=== PATIENT | male | born 1945 | race Caucasian/White ===

== ENCOUNTER 2018-12-01 15:58 | Inpatient (IN) | payer MEDICARE ==
[~2018-12-01] VITALS: Ht 198.1 cm; Wt 119.5 kg
[2018-12-01 16:08] VITALS: BP 129/64
[2018-12-01] MEDS ORDERED: LIPITOR10 MG PO (16:28)
[2018-12-01] MEDS ORDERED: CELEXA10 MG PO (16:28)
[2018-12-01] MEDS ORDERED: BAYER CHEWABLE81 MG PO (16:28)
[2018-12-01] MEDS ORDERED: COREG6.25 MG PO (16:29)
[2018-12-01] MEDS ORDERED: CARBIDOPA-LEVO1 EA16 PO (16:30)
[2018-12-01] MEDS ORDERED: TOPIRAMATE25 MG PO (16:30)
[2018-12-01] MEDS ORDERED: GLYBURIDE-METF1 EACH PO (16:31)
[2018-12-01 16:33] LABS: ABSOLUTE BASOPHILS 0.1 thou/uL (0.0-0.2); ABSOLUTE EOSINOPHILS 0.2 thou/uL (0.0-0.7); ABSOLUTE LYMPHOCYTES 1.4 thou/uL (0.8-5.3); ABSOLUTE MONOCYTES 0.7 thou/uL (0.0-1.2); ABSOLUTE NEUTROPHILS 7.5 thou/uL (1.6-8.1); BASOPHILS 1.2 %; EOSINOPHILS 2.1 %; HEMATOCRIT 43.8 % (42.0-52.0); LYMPHOCYTES 14.4 %; MCHC 34.3 g/dL (28.0-37.0); MONOCYTES 6.9 %; MPV 9.1 fl. (7.2-11.1); NUCLEATED RBCS 0 /100WBC; PLATELET COUNT* 275 thou/uL (150-400); POLYS 75.4 %; RDW-CV 13.3 % (10.5-14.5)
[2018-12-01 16:42] LABS: ANION GAP 7 mmol/L (7-16); BUN 20 mg/dL (7-18); CALCIUM 9.4 mg/dL (8.5-10.1); CHLORIDE 104 mmol/L (98-107); CO2 28 mmol/L (21-32); CREATININE 1.3 mg/dL (0.6-1.3); GLUCOSE 245 mg/dL (70-99); POTASSIUM 4.5 mmol/L (3.5-5.1); SODIUM 139 mmol/L (136-145)
[2018-12-01 16:53] LABS: TROPONIN-I LEVEL <0.06 ng/mL (<0.06)
[2018-12-01 20:43] VITALS: BP 135/84
[2018-12-01 21:07] VITALS: BP 144/86
[2018-12-02 04:42] LABS: HEMATOCRIT 42.4 % (42.0-52.0); HEMOGLOBIN 14.5 gm/dL (14.0-18.0); MCH 34.8 pg (26.0-34.0); MCHC 34.1 g/dL (28.0-37.0); MCV 102.1 fL (80.0-100.0); MPV 9.1 fl. (7.2-11.1); RBC 4.15 mil/uL (4.50-6.00); RDW-CV 13.1 % (10.5-14.5); WBC 10.1 thou/uL (4.0-11.0)
[2018-12-02 04:55] LABS: CALCIUM 9.2 mg/dL (8.5-10.1); POTASSIUM 3.7 mmol/L (3.5-5.1)
[2018-12-02 04:58] LABS: URINE BLOOD NEGATIVE (Negative); URINE CLARITY CLEAR; URINE COLOR DARK YELLOW; URINE GLUCOSE-RANDOM 1+ (Negative); URINE KETONES NEGATIVE (Negative); URINE LEUKOCYTES-REFLEX NEGATIVE (Negative); URINE NITRITE-REFLEX NEGATIVE (Negative); URINE PROTEIN NEGATIVE (Negative); URINE SPECIFIC GRAVITY 1.025 (1.005-1.030); URINE UROBILINOGEN 0.2 E.U./dl (0.2-1.0)
[2018-12-02 05:09] LABS: ICTOTEST (BILI CONFIRMATORY) Negative (Negative); URINE BILIRUBIN 1+ (Negative)
--- NOTE | 2018-12-02 09:47 | EKG ---
[place] [address] ELECTROCARDIOGRAM REPORT Name: NOY GIBBONS Room: [address] ADM IN .R.#: [id number] Admission: 12/01/18 Attend Phys: Mali Lunsford MD Discharge: Date of : 41 Report #: [id number] THIS REPORT FOR: //name// [facility] ED Test Date: 2018-12-01 Test Time: 17:24:55 Pat Name: NOY GIBBONS Department: Room: [facility] Gender: M Herbologist: EV : 1945 Requested By: Randy Bateman Order Number: [id number] MD: Conrad Nettles Measurements Intervals [place] Rate: 81 P: 55 OK: 160 QRS: -29 QRSD: 103 T: 40 QT: 375 QTc: 436 Interpretive Statements Sinus rhythm Borderline left axis deviation Borderline low voltage, extremity leads Compared to ECG 04/07/2007 07:38:36 No significant changes Electronically Signed On 12-02-2018 9:47:38 CDT by Conrad Nettles [email or web address] <ELECTRONICALLY SIGNED> By: Conrad Nettles MD, [facility] 12/02/18 0947 1724 1724 Conrad Nettles MD, [facility] /EPI
[2018-12-02 16:00] VITALS: BP 130/80
[2018-12-02 20:15] VITALS: BP 134/91
[2018-12-03 08:37] VITALS: BP 124/86
[2018-12-03 10:22] LABS: APTT 27.3 Seconds (25.0-31.3); INR 1.1; PROTIME 11.2 Seconds (9.20-11.50)
[2018-12-03 14:32] VITALS: BP 124/86
[2018-12-03 14:33] VITALS: BP 124/86
[2018-12-03 17:02] VITALS: BP 157/87
[2018-12-03 20:25] VITALS: BP 138/87
[2018-12-04 16:31] VITALS: BP 106/77
[2018-12-04 20:01] VITALS: BP 108/59
[2018-12-05 08:30] VITALS: BP 111/62
[2018-12-05 15:42] VITALS: BP 106/63
[2018-12-05 21:15] VITALS: BP 112/58
[2018-12-06 08:30] VITALS: BP 103/56
[2018-12-06 17:11] VITALS: BP 127/64
[2018-12-06 21:30] VITALS: BP 108/53
[2018-12-07 07:40] VITALS: BP 119/65
[2018-12-07] MEDS ORDERED: ACETAMINOPHEN325 MG PO (10:09)
[2018-12-07] MEDS ORDERED: HUMALOG100 UNIT/1 SUBQ (14:18)
[2018-12-07] MEDS ORDERED: NICOTINE TRANSD21 M1 TRANSDERM (14:19)
[2018-12-07 16:00] VITALS: BP 112/63
[2018-12-07 21:10] VITALS: BP 107/58
[2018-12-08 08:00] VITALS: BP 106/68
[2018-12-08 18:45] VITALS: BP 106/68
== END 2018-12-08 19:15 | DRG 516 ==
LOC: M.ERS 15:58 → M.ORTHSURG 18:11 → M.TBA-ER 18:11 → M.ORTHSURG 20:50
PROVIDERS: Nurse Practitioner Psychiatric/Mental Health; ADMIT Internal Medicine
PROC: 0QU03JZ Supplement Lumbar Vertebra with Synthetic Substitute, Percutaneous Approach (ICD-10-PCS; principal; 2018-12-03)
PROC: 0QS03ZZ Reposition Lumbar Vertebra, Percutaneous Approach (ICD-10-PCS; principal; 2018-12-03)
DX: S32.029A Unspecified fracture of second lumbar vertebra, initial encounter for closed fracture (principal); J98.11 Atelectasis; S32.049A Unspecified fracture of fourth lumbar vertebra, initial encounter for closed fracture; G20 Parkinson's disease; M19.90 Unspecified osteoarthritis, unspecified site; F41.9 Anxiety disorder, unspecified; Z95.5 Presence of coronary angioplasty implant and graft; E11.65 Type 2 diabetes mellitus with hyperglycemia; F17.210 Nicotine dependence, cigarettes, uncomplicated; N28.1 Cyst of kidney, acquired; H10.9 Unspecified conjunctivitis; Z60.2 Problems related to living alone; E78.5 Hyperlipidemia, unspecified; I10 Essential (primary) hypertension; W18.39XA Other fall on same level, initial encounter; Y93.89 Activity, other specified; Y92.89 Other specified places as the place of occurrence of the external cause; Y99.8 Other external cause status

== ENCOUNTER 2018-12-08 16:03 | Inpatient (IN) | payer MEDICARE ==
[~2018-12-08] VITALS: Ht 198.1 cm; Wt 122.3 kg
[~2018-12-08 16:03] MED LIST: ACETAMINOPHEN325 MG PO; BAYER CHEWABLE81 MG PO; CARBIDOPA-LEVO1 EA16 PO; CELEXA10 MG PO; COREG6.25 MG PO; GLYBURIDE-METF1 EACH PO; HUMALOG100 UNIT/1 SUBQ; LIPITOR10 MG PO; NICOTINE TRANSD21 M1 TRANSDERM; TOPIRAMATE25 MG PO
[2018-12-08 20:00] VITALS: BP 136/82
[2018-12-09 04:09] LABS: HEMATOCRIT 40.3 % (42.0-52.0); HEMOGLOBIN 13.7 gm/dL (14.0-18.0); MCH 34.5 pg (26.0-34.0); MCHC 34.1 g/dL (28.0-37.0); MCV 101.1 fL (80.0-100.0); MPV 8.9 fl. (7.2-11.1); RBC 3.99 mil/uL (4.50-6.00); WBC 7.8 thou/uL (4.0-11.0)
[2018-12-09 04:20] LABS: CALCIUM 9.3 mg/dL (8.5-10.1); POTASSIUM 3.7 mmol/L (3.5-5.1)
--- NOTE | 2018-12-09 06:42 | NUR ---
PT ARRIVED ONTO UNIT AT 191 VIA W/C. ALERT AND ORIENTED. PLEASANT. HX OF PARKINSONS. HAS TREMORS. S/P KYPHOPLASTY. C/O PAIN TO LEFT LOWER BACK/HIP. THERE IS PALPABLE SMALL LUMP TO AREA THAT IS VERY TENDER/ PAINFUL TO TOUCH. PT LAYS ONTO RIGHT SIDE DUE TO PAIN. TYLENOL GIVEN. DENIED PAIN TO SPINE OR OTHER AREAS. MIN ASSIST WITH GAIT BELT AND WALKER. DOES HAVE URINARY STRESS INCONTINENCE. WEARS PULLUPS. USED URINAL WITH ASSIST BUT DID HAVE URINARY ACCIDENT WELL. VOIDING GOOD AMOUNTS. UA SENT. SLEPT MOST OF THE NIGHT. CALL LIGHT IN REACH AND BED ALARM ON. ADMISSION ASSESSMENT COMPLETED.
[2018-12-09 07:42] VITALS: BP 118/70
[2018-12-09 08:58] LABS: URINE BILIRUBIN NEGATIVE (Negative); URINE BLOOD NEGATIVE (Negative); URINE CLARITY CLEAR; URINE COLOR YELLOW; URINE GLUCOSE-RANDOM NEGATIVE (Negative); URINE KETONES NEGATIVE (Negative); URINE LEUKOCYTES-REFLEX NEGATIVE (Negative); URINE NITRITE-REFLEX NEGATIVE (Negative); URINE PROTEIN NEGATIVE (Negative); URINE SPECIFIC GRAVITY 1.015 (1.005-1.030); URINE UROBILINOGEN 0.2 E.U./dl (0.2-1.0)
--- NOTE | 2018-12-09 13:39 | NUR ---
Nutrition: Pt admitted to rehab. H/o Parkinsons, OA, CAD, DMII. Wt: 265#. CHO controlled diet. BG 147, no albumin recorded. Per RN, no nutrition concerns at this time. RD will follow weekly. Low risk.
--- NOTE | 2018-12-09 14:15 | NUR ---
SW met with pt to complete initial assessment, introduce self, and SW role on inpt rehab. SW familiar with pt from acute stay. Pt alert, oriented. Pt lives at home alone and pt step john Sanchez is supportive. Pt independent prior and pt goal is to be able to return home alone with his dog. Pt has SOBIA anderson. Pt wondered how quickly he might be able to dc home and SW explained team conference on Thursday, how close pt is to meeting pt goals, etc and then discussion with team, doctor, pt to determine when pt may be ready to dc home. SW to continue to follow to assist with safe dc planning.
--- NOTE | 2018-12-09 18:31 | NUR ---
PT HAS PARTICIPATED WITH THERAPIES AND CALLS FOR ASSIST NEEDS.PT AMBULATES WITH WALKER GAITBETL AND MIN ASSIST OF 1 BUT TIRES EASILY. PT REMAINS ALERT AND ORIENTATED. HERE THIS AFTERNOON AND IS REMINDED TO BEING IN HOME MEDICATIONS.
[2018-12-09 19:51] VITALS: BP 113/79
--- NOTE | 2018-12-10 00:58 | NUR ---
ASSUMED CARE AT 1930. PATIENT RESTING IN CHAIR UNTIL HS. UP WITH SBA, GAIT BELT, WALKER. TO BED. VOIDS PER URINAL. WEARS PULLUP FOR STRESS INCONTINENCE. TAKES PILLS WHOLE WITH WATER. DENIES PAIN. TURNS SELF. HOURLY ROUNDS CONTINUE. BED ALARM. CALL LITE IN REACH.
--- NOTE | 2018-12-10 05:14 | NUR ---
SLEPT MOST OF THE NIGHT ON HIS SIDE. TURNS SELF. VOIDS PER URINAL. NO C/O PAIN. HOURLY ROUNDS CONTINUE. BED ALARM ON. CALL LITE IN REACH.
[2018-12-10 08:00] VITALS: BP 129/97
[2018-12-10 09:00] VITALS: BP 129/87
--- NOTE | 2018-12-10 18:02 | NUR ---
PT A&O. DENIES PAIN. GETS UP WITH STAND BY ASSIST. OUT OF BED THE WHOLE DAY. TOLERATING DIET. INSULIN ADMINISTERED PER PROTOCOL. NO ANY SPECIFIC CONCERNS.
[2018-12-10 19:45] VITALS: BP 118/64
--- NOTE | 2018-12-10 21:40 | NUR ---
INITAL ASSESMENT COMPLETED AT 194. PT PLEASANT AND COOPERATIVE, DENIED PAIN OR DISCOMFORT AT THAT TIME. HS MEDS DISPENSED ORDERED PER EMAR. CALL LIGHT IN REACH, PT USING PROPERLY.
[2018-12-11 08:00] VITALS: BP 119/66
--- NOTE | 2018-12-11 14:49 | NUR ---
PATIENT UP IN [place] LUNCH IN DINING ROOM. TOLERATING ACTIVITIES WELL. PATIENT FAMILY BROUGHT IN HOME MEDS CORRECTED ON MAY.
[2018-12-11 19:55] VITALS: BP 111/67
--- NOTE | 2018-12-12 00:40 | NUR ---
ASSUMED CARE @ -SAT.AWAKE IN BED W/ HOB UP WATCHING TV.URINAL W/IN REACH.WANTS ONLY SIDERAILS X2 UP,LIGHTS IN BATHROOM ON & DOOR CLOSED @ NIGHT. TURNS SELF @ NIGHT.PRN AMBIEN 5 MG ORAL GIVEN @ -SUN PER PT'S REQUEST.INFORMED THAT CAN TAKE PRN AMBIEN EARLIER BEFORE 2200 NEXT TIME.ON HOURLY ROUNDS.CAMPAIGN ASSOCIATE DOING ODD HOUR ROUNDS.
--- NOTE | 2018-12-12 05:27 | NUR ---
SLEEPING SINCE 2049.AWAKE @ 0200 & 0400-12/1211-[id number] AFTER TAKING PRN AMBIEN.HAS TREMORS MILD-HEAD & HANDS.USED URINAL X2.REFUSED HS SNACK.
[2018-12-12 08:14] VITALS: BP 111/77
--- NOTE | 2018-12-12 16:21 | NUR ---
PATIENT UP IN CHAIR THIS SHIFT, WAFFLE CUSHION IN PLACE AND PATIENT REPOSITIONS SELF IN CHAIR. UP WITH GAIT BELT AND WALKER. NO COMPLAINTS OF PAIN. PATIENT DRESSED HIMSELF WITH SUPERVISION.
[2018-12-12 16:54] VITALS: BP 113/72
[2018-12-12 19:00] VITALS: BP 114/59
--- NOTE | 2018-12-13 01:12 | NUR ---
ASSUMED CARE @ 1937-12/12-THURSDAY.SITS IN RECLINER WATCHING BALL GAME.CHAIR ALARM ALREADY ON @ 1937.PRN AMBIEN 5 MG ORAL GIVEN @ 2030.SBA FOR TRANSFERS & TOILETING.HOB UP IN BED.WANTS ONLY SIDERAILS X2 UP,LIGHT IN BATHROOM ON ALL NIGHT & DOOR CLOSED @ NIGHT.BED ALARM PUT ON @ 2044.CONCERN OF HARD NODULE W/C IS TENDER ON LOWER BACK LEFT SIDE AFTER KYPHOLASTY.DR ALVAREZ CAME @ 2099 & ORDER GIVEN FOR LIDODERM PATCH TO AFFECTED SITE TO START THIS EVENING.APPLIED @ 2199.ON HOURLY ROUNDS.DIRECTOR COUNSELING BUREAU DOING ODD HOUR ROUNDS.TURNS SELF @ NIGHT.
--- NOTE | 2018-12-13 05:12 | NUR ---
SLEEPING SINCE 2200 & SLEPT CONTINOUSLY DURING NIGHT.REFUSED HS SNACK.BRP X1. DID NOT USE URINAL DURING NIGHT.
[2018-12-13 08:22] VITALS: BP 105/64
[2018-12-13 16:02] VITALS: BP 112/78
--- NOTE | 2018-12-13 16:02 | NUR ---
PATIENT WORKING WITH THERAPYS TODAY. UP TO CHAIR WHEN IN ROOM. PATIENT GIVEN MOM, NO BM SINCE THURSDAY; NO RESULTS AT THIS TIME. NO COMPLAINTS OF PAIN. PATIENT SHOWERED TODAY WITH OT.
[2018-12-13 20:27] VITALS: BP 115/62
--- NOTE | 2018-12-13 23:18 | NUR ---
ASSUMED CARE AT 1930. PATIENT RESTING IN RECLINER UNTIL AFTER "DANCING WITH THE STARS." TAKES PILLS WHOLE WITH WATER. UP WITH SBA, GAIT BELT. REFUSED USING WALKER BECAUSE "THERAPIES TOLD ME I DIDN'T HAVE TO USE IT." VOIDED PER TOILET WHILE STANDING. LIDODERM PATCH PUT ON FIRM AREA TO LT BACK. NO C/O PAIN. TREMORS NOTED. REFUSED HS SNACK. HOURLY ROUNDS CONTINUE. BED ALARM ON. CALL LITE IN REACH.
--- NOTE | 2018-12-14 05:33 | NUR ---
APPEARED SLEEPING MUCH OF NIGHT. HEARD SNORING RESPS AT TIMES. TURNS SELF. NO C/O PAIN. VOIDED PER URINAL. HOURLY ROUNDS CONTINUE. BED ALARM ON. CALL LITE IN REACH.
[2018-12-14 08:23] VITALS: BP 119/79
[2018-12-14 19:30] VITALS: BP 120/69
--- NOTE | 2018-12-14 20:35 | NUR ---
SITTING UP ON SIDE OF BED. DENIES DISCOMFORT. ULTRA SOUND TO LOWER BACK COMPLETED. CALL LIGHT WITHIN REACH.
--- NOTE | 2018-12-15 05:27 | NUR ---
RESTED QUIETLY. USED URINAL X ONE. HOURLY ROUNDING IN PROGRESS.
[2018-12-15 07:55] VITALS: BP 104/68
--- NOTE | 2018-12-15 17:01 | NUR ---
JINA and Dr Andrade met with pt to review team conference summary and plan for pt to dc home tomorrow. Pt in agreement with plan. SW to continue to follow to assist with finalization of safe dc plan.
[2018-12-15 20:00] VITALS: BP 109/68
--- NOTE | 2018-12-15 23:01 | NUR ---
ASSUMED CARE AT 1930. FOUND PATIENT SLEEPING IN BED LYING ON LEFT SIDE IN BED WITHOUT BED ALARM ON AND STILL IN DAYTIME CLOTHES, POSSIBLY HAVING PUT HIMSELF TO BED. TAKES MEDS WHOLE WITH WATER. AFTER DISCUSSION, PATIENT DECIDED TO TAKE MOM BECAUSE HE HAS NOT HAD A BM. HE STATES THAT HE WILL BE "FINE" WHEN HE GETS HOME. ASSISTED WITH CHANGING INTO SLEEP SHIRT. VOIDS PER URINAL AT [facility]. REMINDED OF SAFETY/FALL PRECAUTIONS. BED ALARM ON. CALL LITE IN REACH. HOURLY ROUNDS CONTINUE.
--- NOTE | 2018-12-16 05:16 | NUR ---
OBSERVED SLEEPING ON ROUNDS. VOIDED PER URINAL. NO C/O PAIN. HOURLY ROUNDS CONTINUE. BED ALARM ON. CALL LITE IN REACH.
--- NOTE | 2018-12-16 06:55 | NUR ---
WHILE GIVING AM MEDS, PATIENT WONDERED ABOUT HIS BLOOD SUGAR. HE THOUGHT IT MIGHT BE LOW. FINGERSTICK BLOOD SUGAR PERFORMED, 68. GIVEN 4 OZ APPLE JUICE AND FOUR KARIN CRACKERS. INSTRUCTED PATIENT TO TAKE HS SNACK OFFERED.
[2018-12-16 08:00] VITALS: BP 106/61
[2018-12-16 14:38] VITALS: BP 109/68
[2018-12-16 15:09] VITALS: BP 109/68
--- NOTE | 2018-12-16 15:13 | NUR ---
Pt ready to dc today to home alone with HH services to follow and pt step dtr Laura is supportive and checks on pt on the weekends. JINA sent referral and orders to pt/family preference of [facility]. Pt has needed DME. Pt step dtr to provide pt ride home after pt step dtr is off of work. No other dc needs expressed.
--- NOTE | 2018-12-16 18:02 | NUR ---
AM ASSESSMENT AND VITAL SIGNS COMPLETED DOCUMENTED. PT COMPLETED ALL THERAPY SESSIONS BUT STILL HADN'T HAD A BM. NEW ORDERS REC'D FOR A DULCOLAX SUPPOSITORY AND A KUB. PT EVENTUALLY HAD TWO HUGE BOWEL MOVEMENTS, INCONTINENT OF BOTH AND REQUIRED A SHOWER AND CLOTHING CHANGE EACH TIME. PT'S DAUGHTER STATED THE FLOORS AT HIS HOME WERE NOT COMPLETELY DRY FROM THE WORK THEY HAD DONE WHILE HE WAS HERE AND SHE CAN'T PICK HIM UP UNTIL THE AM.
[2018-12-16 20:27] VITALS: BP 107/71
--- NOTE | 2018-12-17 05:54 | NUR ---
ASSUMED CARES AT 1920. ALERT AND ORIENTED. PLEASANT. C/O PAIN TO LEFT LOWER LATERAL SIDE. WANTED LIDODERM PATCH APPLIED THERE. REFUSED BEDTIME SNACK. SLEPT MOST OF THE NIGHT. CALL LIGHT IN REACH AND BED ALARM ON.
[2018-12-17 08:19] VITALS: BP 126/78
[2018-12-17] MEDS ORDERED: SYNTHROID100 MC1 PO (10:51)
[2018-12-17] MEDS ORDERED: LIDODERM1 EACH TRANSDERM (10:54)
[2018-12-17 10:55] VITALS: BP 109/68
[2018-12-17 11:18] VITALS: BP 109/68
--- NOTE | 2018-12-17 11:33 | NUR ---
PATIENT LEFT UNIT WITH NURSING STAFF AND PT AT 1118. NO SIGNS OF DISTRESS OBSERVED. ALL SAFETY MEASURES MAINTAINED. PAITENT DENIES FUTHER NEEDS AT THIS TIME. DISCHARGE PAPERWORK AND PRESCRIPTION SENT WITH PATIENT.
== END 2018-12-17 14:41 | disposition home health service (06) | DRG 57 ==
LOC: M.REH 16:03
PROVIDERS: ADMIT Physical Medicine & Rehabilitation
DX: G20 Parkinson's disease (principal); S32.029A Unspecified fracture of second lumbar vertebra, initial encounter for closed fracture; S32.049A Unspecified fracture of fourth lumbar vertebra, initial encounter for closed fracture; R29.6 Repeated falls; I10 Essential (primary) hypertension; E78.5 Hyperlipidemia, unspecified; I25.10 Atherosclerotic heart disease of native coronary artery without angina pectoris; F41.9 Anxiety disorder, unspecified; F32.9 Major depressive disorder, single episode, unspecified; M19.90 Unspecified osteoarthritis, unspecified site; E11.9 Type 2 diabetes mellitus without complications; F17.210 Nicotine dependence, cigarettes, uncomplicated; K59.00 Constipation, unspecified; Z95.5 Presence of coronary angioplasty implant and graft; W19.XXXA Unspecified fall, initial encounter; Y93.89 Activity, other specified; Y92.89 Other specified places as the place of occurrence of the external cause; Y99.8 Other external cause status

== ENCOUNTER → 2019-02-14 | Outpatient (CLI) | payer MEDICARE ==
[~2019-02-14] MED LIST changes: +LIDODERM1 EACH TRANSDERM; +SYNTHROID100 MC1 PO
== END ==
LOC: M.MRI 13:02
DX: G31.9 Degenerative disease of nervous system, unspecified (principal); G20 Parkinson's disease